=== PATIENT | female | born 1970 | race Caucasian/White ===

== ENCOUNTER → 2022-01-12 | Day surgery (SDC) | payer OTHER ==
[~2022-01-12] VITALS: Ht 167.6 cm; Wt 97.7 kg
[~2022-01-12] MED LIST: ASPIRIN EC81 MG PO; MAGNESIUM500 MG PO; MONTELUKAST SOD10 MG PO; NORCO 5-325 TA1 EACH PO; PRILOSEC20 MG PO; VITAMIN B122500 MC1 PO; VITAMIN D325 MC4 PO; ZYRTEC10 M3 PO
[2022-01-12 08:21] LABS: HCT 43.1 % (37.0-47.0); HGB 14.5 g/dl (12.5-16.0); MCHC 33.6 g/dL (32.0-36.0); MCV 86.2 fL (78.0-100.0); MPV 10.3 fL (6.0-9.5); RDW 12.6 % (11.5-14.0); WBC 5.3 K/uL (4.0-10.5)
[2022-01-12 08:49] LABS: ALBUMIN 3.8 g/dL (3.4-5.0); BILIRUBIN - TOTAL 0.5 mg/dL (0.2-1.0); BUN/CREAT RATIO (CALC) 11.1 RATIO; CREATININE 0.72 mg/dL (0.51-0.95); GLOBULIN (CALCULATION) 3.4 g/dL; POTASSIUM 3.7 mmol/L (3.5-5.1); TOTAL PROTEIN 7.2 g/dL (6.4-8.2)
== END | disposition home or self-care (01) ==
LOC: FAS 07:28
PROVIDERS: Surgery
DX: Z12.11 Encounter for screening for malignant neoplasm of colon (principal); K64.1 Second degree hemorrhoids; E78.5 Hyperlipidemia, unspecified; K21.9 Gastro-esophageal reflux disease without esophagitis; Z91.040 Latex allergy status; Z91.048 Other nonmedicinal substance allergy status; Z79.82 Long term (current) use of aspirin; Z79.899 Other long term (current) drug therapy
CPT/HCPCS: 36415; 80053; 93005; J1100; J2704; J7120